=== PATIENT | male | born 1940 | race Caucasian/White ===

== ENCOUNTER 2020-11-16 13:27 | Inpatient (IN) | payer MEDICARE, OTHER ==
[~2020-11-16] VITALS: Ht 172.7 cm; Wt 76.4 kg
[~2020-11-16 13:27] MED LIST: ADVAIR INH; ALBU90OI INH; ALBU90OI6 INH; ALBU90OI61 INH; ALPR.25 PO; ALPR.5 PO; ASPI81EC PO; ATEN25; ATEN25 PO; ATOR10; Aspir 8181 MG PO; BENA20 PO; BENAML10/5; BUDE6HFA INH; Budesonide0.5 MG/2 M INH; CITA20 PO; CLOP75 PO; COMBIVENT RESPIM4 GM INH; FAMO20 PO; FINA5 PO; FLUSAL2505 IH; FLUT.05NI; FURO20 PO; FURO40 PO; Flonase 0.05% N16 GM; Isosorbide Mono60 MG PO; LANS15EC; LANS30EC PO; LISI5 PO; LOVA40 PO; METO25ER PO; METO50ER PO; NIFE30ER PO; NITR.4SL SL; PRED10; SPIR25 PO; TEMA15 PO
[2020-11-16] MEDS ORDERED: BUDESONIDE0.5 MG/25 NEB (14:16)
[2020-11-16] MEDS ORDERED: Celexa40 MG PO (14:18)
[2020-11-16] MEDS ORDERED: IPRAT-ALBUT 0.5-3 ML NEB (14:20)
[2020-11-16] MEDS ORDERED: FLUTICASONE-SA1 EAC9 INH (14:22)
[2020-11-16 14:25] LABS: BASOPHILS ABSOLUTE AUTO 0.03 K/mm3 (0.00-0.23); BASOPHILS PERCENT AUTO 0 % (0-2); EOSINOPHILS ABSOLUTE AUTO 0.03 K/mm3 (0.00-0.68); EOSINOPHILS PERCENT AUTO 0 % (0-6); Hematocrit 24.1 % (37.0-53.0); IMMATURE GRAN ABSOLUTE AUTO 0.12 K/mm3 (0.00-0.10); IMMATURE GRAN PERCENT AUTO 1 % (0-1); LYMPHOCYTES ABSOLUTE AUTO 0.66 K/mm3 (0.84-5.20); LYMPHOCYTES PERCENT AUTO 4 % (21-46); MONOCYTES ABSOLUTE AUTO 1.86 K/mm3 (0.16-1.47); MONOCYTES PERCENT AUTO 12 % (4-13); Mean Corpuscular Volume 79 fL (80-100); Mean Platelet Volume 9.7 fL (9.1-12.4); NEUTROPHILS ABSOLUTE AUTO 13.22 K/mm3 (1.96-9.15); NEUTROPHILS PERCENT AUTO 83 % (41-73); NRBC ABSOLUTE 0.16 K/mm3 (0.00-0.02); Platelet Count 432 K/mm3 (150-400); RDW Coefficient Variation 17.2 % (11.7-14.2); RDW Standard Deviation 48.9 fL (35.1-46.3); Red Blood Cell Count 3.05 M/mm3 (4.30-5.90); White Blood Cell Count 15.92 K/mm3 (4.00-11.30)
[2020-11-16 14:45] LABS: Troponin I <0.015 ng/mL (0.000-0.040)
[2020-11-16 15:17] LABS: Alanine Aminotransfer (ALT/SGP 36 U/L (12-78); Albumin, Blood 3.4 g/dL (3.4-5.0); Albumin/Globulin Ratio 1.1 (0.8-1.8); Alk Phos 64 U/L (50-136); Anion Gap 8 mmol/L (6-16); Aspartate Aminotrans (AST/SGOT 20 U/L (12-37); Bilirubin, Total 0.4 mg/dL (0.1-1.0); Blood Urea Nitrogen 55 mg/dL (8-24); Bun/Creatinine Ratio 29.7 (12.0-20.0); CO2, Blood 24 mmol/L (21-32); Calcium, Blood 8.2 mg/dL (8.5-10.1); Chloride, Blood 101 mmol/L (98-108); Creatinine, Blood 1.85 mg/dL (0.60-1.20); Glomerular Filtration Rate 37 (60-); Glucose, Blood 95 mg/dL (70-99); Potassium, Blood 3.8 mmol/L (3.5-5.5); Sodium, Blood 133 mmol/L (136-145); Total Protein, Blood 6.4 g/dL (6.4-8.2)
[2020-11-16 15:34] LABS: Source, Urine Clean Catch
[2020-11-16 15:41] LABS: Bilirubin, Urine Neg (Neg); Blood, Urine Neg (Neg); Glucose Qualitative, Urine Neg (Neg); Ketones, Urine Neg (Neg); Leukocyte Esterase, Urine Neg (Neg); Nitrite, Urine Neg (Neg); Protein, Urine Neg (Neg); Specific Gravity, Urine 1.015 (1.003-1.022); Urobilinogen, Urine NORM (Normal)
[2020-11-16] MEDS ORDERED: METO50 PO (15:56)
[2020-11-16] MEDS ORDERED: Prinivil10 MG PO (15:56)
[2020-11-16 16:00] LABS: Appearance, Urine Clear (Clear); Color, Urine Yellow (P-Yellow)
[2020-11-16 16:44] LABS: International Normalized Ratio 1.15; Prothrombin Time Results 12.3 Sec (9.7-11.5)
--- NOTE | 2020-11-16 19:15 | NUR ---
SHIFT SUMMARY PT ARRIVED ON MEDICAL FLOOR AT 1840, TUCKED PT IN, BLOOD RUNNING. VSS. EDUCATED PT ON NPO STATUS, ON S/S TO WATCH FOR WHILE GETTING BLOOD. AO1 FROM STRETCHER TO BED, VERY SOB WITH MINIMAL EXERTION. AT BS. AWAITING TELE
[2020-11-16] MEDS ORDERED: Prednisone10 MG PO (20:13)
[2020-11-16] MEDS ORDERED: Prevacid15 M2 PO (20:20)
[2020-11-16] MEDS ORDERED: FINA5 PO (20:21)
[2020-11-16] MEDS ORDERED: XANAX0.25 MG PO (20:26)
--- NOTE | 2020-11-16 22:17 | NUR ---
WAS ADMITTED TO FLOOR EARLIER, BEFORE SHIFT COMMENCE. DX INCLUDED GI BLEED, COPD AND CHF EXACERBATIONS. ALERT AND ORIENTED X 4. DENIES PAIN. HAS RECEIVED FIRST UNIT OF PRBC, AND 2ND (OF 2) IS CURRENTLY INFUSING. NO NOTED ADVERSE REACTIONS OF THIS WRITING. ORIENTED TO USE OF CALL LIGHT. HOB ELEVATED. SEEN BY RT, O2 PER NC AT 4L/MIN. CALL LIGHT IN REACH
--- NOTE | 2020-11-17 00:09 | NUR ---
2ND (OF 2) UNITS OF PRBC INFUSED. DENIES ANY ADVERSE REACTIONS. NO NOTED S/S DISTRESS. SMILING. O2 PER NC. CALL LIGHT IN REACH
--- NOTE | 2020-11-17 03:15 | NUR ---
RESEARCH WORKER ENCYCLOPEDIA SUMMARY RECEIVED 2 UNITS OF PRBC EARLIER IN THE SHIFT. NO NOTED ADVERSE REACTIONS. THEN REQUESTED AND RECEIVED SLEEP MED. MEDICATION APPEARS EFFECTIVE HE HAS BEEN RESTING QUIETLY SINCE, CALL LIGHT IN REACH. O2 PER NC. DENIED PAIN OR SOB WHEN ASKED. CALL LIGHT IN REACH.
[2020-11-17 04:35] LABS: BASOPHILS PERCENT AUTO 0 % (0-2); EOSINOPHILS PERCENT AUTO 0 % (0-6); Hematocrit 25.6 % (37.0-53.0); Hemoglobin 8.1 g/dL (13.5-17.5); IMMATURE GRAN PERCENT AUTO 1 % (0-1); LYMPHOCYTES ABSOLUTE AUTO 0.17 K/mm3 (0.84-5.20); LYMPHOCYTES PERCENT AUTO 2 % (21-46); MONOCYTES ABSOLUTE AUTO 0.14 K/mm3 (0.16-1.47); MONOCYTES PERCENT AUTO 2 % (4-13); Mean Corpuscular HGB 24.3 pg (26.0-34.0); Mean Corpuscular HGB Conc 31.6 g/dL (31.5-36.5); Mean Corpuscular Volume 77 fL (80-100); Mean Platelet Volume 9.4 fL (9.1-12.4); NEUTROPHILS ABSOLUTE AUTO 8.92 K/mm3 (1.96-9.15); NEUTROPHILS PERCENT AUTO 96 % (41-73); NRBC ABSOLUTE 0.08 K/mm3 (0.00-0.02); NRBC Auto 0.9 /100 WBC (0.0-0.2); Platelet Count 291 K/mm3 (150-400); RDW Coefficient Variation 18.2 % (11.7-14.2); RDW Standard Deviation 50.7 fL (35.1-46.3); Red Blood Cell Count 3.34 M/mm3 (4.30-5.90); White Blood Cell Count 9.33 K/mm3 (4.00-11.30)
[2020-11-17 04:58] LABS: Albumin, Blood 3.2 g/dL (3.4-5.0); Albumin/Globulin Ratio 1.2 (0.8-1.8); Bun/Creatinine Ratio 29.3 (12.0-20.0); Calcium, Blood 8.2 mg/dL (8.5-10.1); Creatinine, Blood 1.64 mg/dL (0.60-1.20); Globulin, Blood 2.7 g/dL (2.2-4.0); Potassium, Blood 3.6 mmol/L (3.5-5.5); Total Protein, Blood 5.9 g/dL (6.4-8.2)
--- NOTE | 2020-11-17 06:04 | NUR ---
EARLIER, VOICED SHORT OF BREATH, OVERHEAD CRANE INSPECTOR REPORTED DECREAED HEART RATE. ASSISTED UP I BED. INHALER USED. CALL PLACED TO RT FOR RESP TREATMENT (THEY SAID THEY WOULD BE HERE [facility]). ENCOURAGED TO TAKE RESPS VIA NOSE - DUE TO NC. CURRENTLY BREATHING BETTER. SMILED AND SAID HE WAS OK. CALL LIGHT IN REACH. SCHEDULED FOR VISIT WITH GI MD - ED MD HAD SPOKEN WITH HIM RE LATA LOCKE BLEED LAST EVENING - SEE CHART.
--- NOTE | 2020-11-17 11:01 | NUR ---
PATIENT , JESSICA, CALLED EARLIER ASKING FOR UPDATE. ATTEMPT TO CALL AT [phone] AND PHONE JUST KEPT RINGING. UNABLE TO REACH OR LEAVE ANY MESSAGE.
--- NOTE | 2020-11-17 11:06 | NUR ---
UPDATED ON PATIENT CONDITION AND FURTHER TREATMENTS.
--- NOTE | 2020-11-17 21:20 | NUR ---
cOMPUTERS WERE DOWN EARLIER, GAVE PRE PROCEDURE PREP ORDERS. ORDERS INCLUDED ORAL BOWEL PREP. CURRENTLY DRINKING ONE (OF 2) BOTTLES. 2ND ONE TO BE CONSUMED AROUND 0800 AM. WILL BE ONLY WATER ORAL AT 0100 AM, AND THEN NPO AT 11--AM. ALERT AND ORIENTED. CALL LIGHT IN REACH
[2020-11-18 02:23] LABS: Hematocrit 24.9 % (37.0-53.0); Hemoglobin 7.7 g/dL (13.5-17.5)
[2020-11-18 02:43] LABS: Bun/Creatinine Ratio 28.4 (12.0-20.0); Calcium, Blood 8.3 mg/dL (8.5-10.1); Creatinine, Blood 1.48 mg/dL (0.60-1.20); Potassium, Blood 3.2 mmol/L (3.5-5.5); Troponin I 0.289 ng/mL (0.000-0.040)
--- NOTE | 2020-11-18 03:11 | NUR ---
MEDIA CENTER DIRECTOR SCHOOL SUMMARY IS SCHEDULED FOR GI PROCEDURES LATER TODAY PER DR MARTINI. BOWEL PREP INITIATD LAST EVENING - SEE MAR FOR DETAILS. HAS BEEN ON WATER PO ONLY SINCE 0100 AM, AND WILL BE NPO AFTER 1100 AM TODAY. MED TELE ON, MULTIPLE ATTEMPTS TO ADDRESS ISSUES OF TELE THROUGHOUT NOCT. LEADS AND BOX CHANGED OUT. ALERT AND ORIENTED. HOB REMAINS ELEVATED FOR COMFORT. O2 PER NC. RESTING QUIETELY. CALL LIGHT IN REACH. WILL CONTINUE TO MONITOR.
--- NOTE | 2020-11-18 04:29 | NUR ---
UP TO RESTROOM. LARGE BLACK LIQUID STOOL. ALERT AND ORIENTED. COVID TEST OBTAINED AND TAKEN TO LAB FOR PROCESSING. CALL LIGHT IN REACH
[2020-11-18 05:20] LABS: SARS-Cov-2 (COVID-19) PCR, MMC NEGATIVE (NEGATIVE)
--- NOTE | 2020-11-18 07:35 | NUR ---
PATIENT REQUESTED BREATHING TREATMENT. RT PAGED AT 0705 AM. TELE MONITOR CALLED ABOUT LEADS. IVANA MONTES DE OCA CHECKED IN ON PATIENT AND ASKED LEADING FIREFIGHTER TO CHECK LEADS. LEADING FIREFIGHTER IN TO REPLACE LEADS AND WAS TALKING TO PATIENT AT THAT TIME. FIELD APPRAISER ASKED LEADING FIREFIGHTER TO REPLACE ALL LEADS RYTHM NOT COMING IN. LEADING FIREFIGHTER LEFT ROOM TO GET LEADS AND R.T. SHOWED UP TO DO BREATHING TREATMENT. R.T. WAS IN ROOM AND CAME OUT TO GET TREATMENTS AND WHEN SHE WENT BACK IN OBSERVED PATIENT NOT BREATHING. CODE CALLED AT 0710. THREE ROUNDS CHEST COMPRESSIONS. MONITOR SHOWED V FIB. CODE CALLED [id number].
== END 2020-11-18 07:17 | DRG 291 ==
LOC: ER 13:27 → MEDS 17:04
PROVIDERS: Family Medicine; Internal Medicine Gastroenterology; Physician Assistant; ADMIT Internal Medicine
PROC: 5A12012 Performance of Cardiac Output, Single, Manual (ICD-10-PCS; principal; 2020-11-16)
PROC: 30233N1 Transfusion of Nonautologous Red Blood Cells into Peripheral Vein, Percutaneous Approach (ICD-10-PCS; 2020-11-16)
DX: I13.0 Hypertensive heart and chronic kidney disease with heart failure and stage 1 through stage 4 chronic kidney disease, or unspecified chronic kidney disease (principal); J96.01 Acute respiratory failure with hypoxia; I50.23 Acute on chronic systolic (congestive) heart failure; J44.1 Chronic obstructive pulmonary disease with (acute) exacerbation; I24.8 Other forms of acute ischemic heart disease; N17.9 Acute kidney failure, unspecified; Z66 Do not resuscitate; D50.0 Iron deficiency anemia secondary to blood loss (chronic); R19.5 Other fecal abnormalities; N18.2 Chronic kidney disease, stage 2 (mild); I34.0 Nonrheumatic mitral (valve) insufficiency; I25.5 Ischemic cardiomyopathy; I49.5 Sick sinus syndrome; F41.9 Anxiety disorder, unspecified; F32.9 Major depressive disorder, single episode, unspecified; I25.10 Atherosclerotic heart disease of native coronary artery without angina pectoris; K21.9 Gastro-esophageal reflux disease without esophagitis; Z79.02 Long term (current) use of antithrombotics/antiplatelets; Z79.899 Other long term (current) drug therapy; Z79.52 Long term (current) use of systemic steroids; Z79.82 Long term (current) use of aspirin; Z88.5 Allergy status to narcotic agent; I25.2 Old myocardial infarction; Z87.891 Personal history of nicotine dependence; Z95.1 Presence of aortocoronary bypass graft; Z95.5 Presence of coronary angioplasty implant and graft; Z95.0 Presence of cardiac pacemaker; Z85.51 Personal history of malignant neoplasm of bladder
CPT/HCPCS: 36415; 36430; 71046; 80048; 80053; 81003; 82272; 83735; 83880; 84484; 85014; 85018; 85025; 85610; 85730; 86850; 86900; 86901; 86923; 93005; 93010; 93306; 93971; 94640; 94664; 94760; 96374; 99285-25; A9270; C9113; J0456; J1940; J2930; J7030; J7050; P9016; U0004